=== PATIENT | female | born 1945 | race Caucasian/White ===

== ENCOUNTER 2018-09-20 12:41 | Emergency (ER) | payer OTHER ==
[2018-09-20 14:05] LABS: Absolute Lymphocytes (CBC) 2.9 K/uL (0.7-4.9); Absolute Monocytes 1.1 K/uL (0.1-1.3); Absolute Neutrophil 5.8 K/uL (1.8-8.0); Basophils % 0.2 % (0-1.3); Eosinophils % 4.5 % (0-4.4); Hematocrit 44.4 % (36.0-45.0); Lymphocytes % 28.3 % (15.3-44.8); MCH 31.2 pg (27.0-35.0); MCV 89.6 fL (80-100); MPV 9.4 fL (7.6-11.3); Monocytes % 10.4 % (3.3-12.3); RBC Red Blood Cell Count 4.95 M/uL (3.86-4.86)
[2018-09-20 14:11] LABS: Protime INR 1.05
[2018-09-20 14:12] LABS: ALT/SGPT 33 U/L (12-78); AST/SGOT 29 U/L (15-37); Alkaline Phosphatase 54 U/L (45-117); BUN Blood Urea Nitrogen 23 mg/dL (7-18); Bicarbonate 27 mmol/L (21-32); Bilirubin Direct 0.2 mg/dL (0-0.2); Bilirubin Total 0.5 mg/dL (0.2-1.0); Glucose Level 89 mg/dL (74-106); Magnesium 2.1 mg/dL (1.8-2.4); NT PRO-BNP 83 pg/mL (<125); Potassium 3.9 mmol/L (3.5-5.1); Protein, Total 7.8 g/dL (6.4-8.2); Sodium Level 139 mmol/L (136-145); Troponin (Emerg Dept Use Only) < 0.02 ng/mL (0.0-0.045)
--- NOTE | 2018-09-20 14:16 | RAD REPORT ---
EXAM DESCRIPTION: Balaji Single View09/20/2018 1:55 pm CLINICAL HISTORY: Chest pain COMPARISON: December 2017 FINDINGS: The lungs appear clear of acute infiltrate. The heart is normal size IMPRESSION: No acute abnormalities displayed
--- NOTE | 2018-09-20 14:44 | EKG ---
Test Date: 2018-09-20 Test Time: 13:52:36 Finishing Operator: MAXI MEASUREMENT RESULTS: Intervals: Rate: 90 MI: 152 QRSD: 66 QT: 372 QTc: 455 Stacy: P: 66 MI: 152 QRS: -17 T: 37 INTERPRETIVE STATEMENTS: Normal sinus rhythm Anteroseptal infarct, age undetermined Abnormal ECG Compared to ECG 06/17/2016 09:22:02 Atrial premature complex(es) no longer present Myocardial infarct finding still present Electronically Signed On 09-20-18 14:44:01 DIVISION CONTROLLER by Iban Ann
[2018-09-20] MEDS ORDERED: ASPIRIN 81 MG CHEWABLE TABLET ONE (15:11)
[2018-09-20] MEDS ORDERED: METOPROLOL TAR 25 MG TAB ONE (15:12)
--- NOTE | 2018-09-20 15:19 | RAD REPORT ---
EXAM DESCRIPTION: CT - Head C Spine Mpr Wo Con - 09/20/2018 2:54 pm CLINICAL HISTORY: Head and neck pain radiculopathy COMPARISON: May 2018 MRI C-spine TECHNIQUE: Computed axial tomography of the head and cervical spine was obtained. Sagittal and coronal reconstruction was performed. All CT scans are performed using dose optimization technique as appropriate and may include automated exposure control or mA/KV adjustment according to patient size. FINDINGS: An intracranial bleed is not seen. The ventricles are normal in caliber. An extra-axial fl uid collection is not noted. Couple of punctate calcifications may be secondary to prior inflammation or cavernous angiomas. Fluid within the visualized sinuses and mastoids is not seen A cervical fracture is not visualized. No dislocation is noted. Spondylosis of the cervical spine res ults in multilevel mild to moderate foraminal stenosis. IMPRESSION: No acute intracranial abnormality is seen. A cervical fracture is not visualized. If the patient continues to have symptoms to suggest intracra nial /spinal cord/spinal canal pathology then MRI would be recommended
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
--- NOTE | 2018-09-20 15:50 | EDPHYS ---
Physician Documentation [facility] Name: Joey Almanza Age: 72 yrs Sex: Female : 1945 Arrival Date: 09/20/2018 Time: 12:45 Bed 30 Private MD: Rj Thayer E ED Physician Kristofer Bryant HPI: 09/20 14:49 This 72 yrs old Female presents to ER via Ambulatory with complaints of enid Headache, Dizziness. 14:49 The patient complains of pain to the forehead, left temporal area and right temporal enid area. 14:49 The patient describes the headache as a pressure. Onset: The symptoms/episode enid began/occurred just prior to arrival, this morning, last night. The patient or guardian reports chest pain that is located primarily in the anterior chest wall, bilaterally. Onset: 2 week(s) ago. The patient presents to the emergency department with nausea. Onset: The symptoms/episode began/occurred 2 week(s) ago. Possible causes: unknown. The symptoms are aggravated by nothing. The symptoms are alleviated by nothing. The patient presents with dizziness, generalized weakness. Historical: - Allergies: 12:52 Codeine; aa5 - PMHx: 12:52 COPD; Depression; Emphysema; GERD; High Cholesterol; Hypertension; aa5 - PSHx: 12:52 Cataract Surgery Bilateral; aa5 - Immunization history:: Adult Immunizations unknown. - Ebola Screening: : No symptoms or risks identified at this time. - Family history:: not pertinent. - Social history:: Smoking status: Patient/guardian denies using tobacco. ROS: 14:49 Constitutional: Negative for fever, chills, and weight loss, Eyes: Negative for injury, enid pain, redness, and discharge, ENT: Negative for injury, pain, and discharge, Neck: Negative for injury, pain, and swelling, Respiratory: Negative for shortness of breath, cough, wheezing, and pleuritic chest pain, Back: Negative for injury and pain, : Negative for injury, bleeding, discharge, and swelling, MS/Extremity: Negative for injury and deformity, Skin: Negative for injury, rash, and discoloration, Psych: Negative for depression, anxiety, suicide ideation, homicidal ideation, and hallucinations, Allergy/Immunology: Negative for hives, rash, and allergies, Endocrine: Negative for neck swelling, polydipsia, polyuria, polyphagia, and marked weight changes, Hematologic/Lymphatic: Negative for swollen nodes, abnormal bleeding, and unusual bruising. 14:49 Cardiovascular: Positive for chest pain, of the chest. 14:49 Abdomen/GI: Positive for nausea. 14:49 Neuro: Positive for dizziness. Exam: 14:49 Constitutional: This is a well developed, well nourished patient who is awake, alert, enid and in no acute distress. Head/Face: Normocephalic, atraumatic. Eyes: Pupils equal round and reactive to light, extra-ocular motions intact. Lids and lashes normal. Conjunctiva and sclera are non-icteric and not injected. Cornea within normal limits. Periorbital areas with no swelling, redness, or edema. ENT: Nares patent. No nasal discharge, no septal abnormalities noted. Tympanic membranes are normal and external auditory canals are clear. Oropharynx with no redness, swelling, or masses, exudates, or evidence of obstruction, uvula midline. Mucous membranes moist. Neck: Trachea midline, no thyromegaly or masses palpated, and no cervical lymphadenopathy. Supple, full range of motion without nuchal rigidity, or vertebral point tenderness. No Meningismus. Chest/axilla: Normal chest wall appearance and motion. Nontender with no deformity. No lesions are appreciated. Cardiovascular: Regular rate and rhythm with a normal S1 and S2. No gallops, murmurs, or rubs. Normal PMI, no JVD. No pulse deficits. Respiratory: Lungs have equal breath sounds bilaterally, clear to auscultation and percussion. No rales, rhonchi or wheezes noted. No increased work of breathing, no retractions or nasal flaring. Abdomen/GI: Soft, non-tender, with normal bowel sounds. No distension or tympany. No guarding or rebound. No evidence of tenderness throughout. Back: No spinal tenderness. No costovertebral tenderness. Full range of motion. Skin: Warm, dry with normal turgor. Normal color with no rashes, no lesions, and no evidence of cellulitis. MS/ Extremity: Pulses equal, no cyanosis. Neurovascular intact. Full, normal range of motion. Neuro: Awake and alert, GCS 15, oriented to person, place, time, and situation. Cranial nerves II-XII grossly intact. Motor strength 5/5 in all extremities. Sensory grossly intact. Cerebellar exam normal. Normal gait. Psych: Awake, alert, with orientation to person, place and time. Behavior, mood, and affect are within normal limits. 14:49 Musculoskeletal/extremity: DVT Exam: No signs of deep vein thrombosis. no pain, no swelling, no tenderness, negative Homans' sign noted on exam, no appreciated bluish discoloration, no erythema, no increased warmth. Vital Signs: 12:53 BP 140 / 83; Pulse 97; Resp 18 S; Temp 97.6(TE); Pulse Ox 96% on R/A; Weight 58.97 kg aa5 (R); Height 5 ft. 5 in. (165.10 cm) (R); Pain 4/10; 14:00 BP 135 / 76; Pulse 90; Resp 20; Pulse Ox 95% on R/A; kr2 15:00 BP 137 / 82; Pulse 64; Resp 18; Pulse Ox 97% ; kr2 17:00 BP 133 / 80; Pulse 66; Resp 18; Pulse Ox 100% ; kr2 18:00 BP 128 / 72; Pulse 67; Resp 18; Pulse Ox 97% on R/A; kr2 12:53 Body Mass Index 21.63 (58.97 kg, 165.10 cm) aa5 14:00 Respirations even and unlabored kr2 MDM: 12:56 Patient medically screened. [facility] 14:53 Data reviewed: vital signs, nurses notes, lab test result(s), EKG, radiologic studies, [facility] CT scan, doppler, plain films. 09/20 13:35 Order name: Basic Metabolic Panel; Complete Time: 16:34 kr2 09/20 13:35 Order name: CBC with Diff; Complete Time: 14:34 kr2 09/20 13:35 Order name: LFT's; Complete Time: 16:34 kr2 09/20 13:35 Order name: Magnesium; Complete Time: 16:34 kr2 09/20 13:35 Order name: NT PRO-BNP; Complete Time: 16:34 kr2 09/20 13:35 Order name: PT-INR; Complete Time: 14:34 kr2 09/20 13:35 Order name: XRAY Chest (1 view); Complete Time: 14:34 kr2 09/20 13:35 Order name: Troponin (emerg Dept Use Only); Complete Time: 16:34 [facility] 09/20 13:43 Order name: Urine Dipstick--Ancillary (enter results) 09/20 14:49 Order name: D-Dimer; Complete Time: 15:46 [facility] 09/20 15:48 Order name: Lipase [facility] 09/20 16:12 Order name: Lipase; Complete Time: 16:34 EDMS 09/20 17:00 Order name: Troponin (emerg Dept Use Only): 500pm; Complete Time: 17:54 [facility] 09/20 13:06 Order name: EKG - Nurse/Tech; Complete Time: 13:58 [facility] 09/20 13:35 Order name: EKG; Complete Time: 13:37 [facility] 09/20 13:35 Order name: Cardiac monitoring; Complete Time: 13:36 [facility] 09/20 13:35 Order name: IV Saline Lock; Complete Time: 13:36 [facility] 09/20 13:35 Order name: Labs collected and sent; Complete Time: 13:37 [facility] 09/20 13:35 Order name: O2 Per Protocol; Complete Time: 13:37 [facility] 09/20 13:35 Order name: O2 Sat Monitoring; Complete Time: 13:37 [facility] 09/20 13:36 Order name: Urine Dipstick-Ancillary (obtain specimen); Complete Time: 13:36 [facility] 09/20 14:48 Order name: CT Head C Spine; Complete Time: 15:46 [facility] 09/20 14:48 Order name: Carotid Artery Bilateral US [facility] 09/20 14:52 Order name: Echo w/ Doppler [facility] 09/20 16:36 Order name: CT Aorta for Dissection; Complete Time: 17:54 [facility] 09/20 17:00 Order name: Repeat Cardiac Enzymes at: 5pm; Complete Time: 17:10 [facility] Administered Medications: 14:55 Not Given (Duplicate Order): Lopressor 25 mg PO once [facility] 15:06 Drug: Aspirin 162 mg Route: PO; kr2 15:06 Drug: ToPROL XL 25 mg Route: PO; kr2 Disposition: 09/20/18 15:48 Discharged to Home. Impression: Dizziness and giddiness, Weakness, Chronic obstructive pulmonary disease, unspecified, Chest pain, unspecified, Other abdominal pain - elevated lipase. - Condition is Stable. - Discharge Instructions: Dizziness, Weakness, Fatigue, Weakness, [id number], Aspirin and Your Heart, Dizziness, [id number]. - Prescriptions for Toprol XL 25 mg Oral Tablet - take 1 tablet by ORAL route once daily; 20 tablet. - Medication Reconciliation Form, Thank You Letter, Antibiotic Education, Prescription Opioid Use form. - Follow up: Rj Thayer; When: 2 - 3 days; Reason: Recheck today's complaints, Continuance of care, Re-evaluation by your physician. Follow up: Iban Ann; When: 2 - 3 days; Reason: Recheck today's complaints, Continuance of care, Re-evaluation by your physician. Follow up: Slade Shay MD; When: 2 - 3 days; Reason: Recheck today's complaints, Re-evaluation by your physician. - Problem is new. - Symptoms have improved. Signatures: Dispatcher [employer] EDDC Kristofer Bryant MD MD cha Calderon, Audri, RN RN aa5 Mariana Swenson RN RN kr2 Corrections: (The following items were deleted from the chart) 14:52 14:35 Head Brain Wo Cont+CT.RAD.BRZ ordered. [facility] 15:51 15:48 09/20/2018 15:48 Discharged to Home. Impression: Dizziness and giddiness; enid Weakness. Condition is Stable. Discharge Instructions: Dizziness, Weakness, Fatigue, Weakness, [id number], Aspirin and Your Heart, Dizziness, [id number]. Prescriptions for Toprol XL 25 mg Oral Tablet - take 1 tablet by ORAL route once daily; 20 tablet. and Forms are Medication Reconciliation Form, Thank You Letter, Antibiotic Education, Prescription Opioid Use. Follow up: Rj Thayer; When: 2 - 3 days; Reason: Recheck today's complaints, Continuance of care, Re-evaluation by your physician. Follow up: Iban Ann; When: 2 - 3 days; Reason: Recheck today's complaints, Continuance of care, Re-evaluation by your physician. Problem is new. Symptoms have improved. enid 16:10 15:49 Lipase ordered. [facility] 16:37 15:51 09/20/2018 15:48 Discharged to Home. Impression: Dizziness and giddiness; enid Weakness; Chronic obstructive pulmonary disease, unspecified; Chest pain, unspecified. Condition is Stable. Discharge Instructions: Dizziness, Weakness, Fatigue, Weakness, [id number], Aspirin and Your Heart, Dizziness, [id number]-fm-[id number]. Prescriptions for Toprol XL 25 mg Oral Tablet - take 1 tablet by ORAL route once daily; 20 tablet. and Forms are Medication Reconciliation Form, Thank You Letter, Antibiotic Education, Prescription Opioid Use. Follow up: Rj Thayer; When: 2 - 3 days; Reason: Recheck today's complaints, Continuance of care, Re-evaluation by your physician. Follow up: Iban Ann; When: 2 - 3 days; Reason: Recheck today's complaints, Continuance of care, Re-evaluation by your physician. Problem is new. Symptoms have improved. enid 16:37 16:37 09/20/2018 15:48 Discharged to Home. Impression: Dizziness and giddiness; enid Weakness; Chronic obstructive pulmonary disease, unspecified; Chest pain, unspecified; Other abdominal pain - elevated lipase. Condition is Stable. Discharge Instructions: Dizziness, Weakness, Fatigue, Weakness, [id number], Aspirin and Your Heart, Dizziness, Ieqa-[id number]. Prescriptions for Toprol XL 25 mg Oral Tablet - take 1 tablet by ORAL route once daily; 20 tablet. and Forms are Medication Reconciliation Form, Thank You Letter, Antibiotic Education, Prescription Opioid Use. Follow up: Rj Thayer; When: 2 - 3 days; Reason: Recheck today's complaints, Continuance of care, Re-evaluation by your physician. Follow up: Iban Ann; When: 2 - 3 days; Reason: Recheck today's complaints, Continuance of care, Re-evaluation by your physician. Problem is new. Symptoms have improved. enid 18:07 16:37 09/20/2018 15:48 Discharged to Home. Impression: Dizziness and giddiness; kr2 Weakness; Chronic obstructive pulmonary disease, unspecified; Chest pain, unspecified; Other abdominal pain - elevated lipase. Condition is Stable. Discharge Instructions: Dizziness, Weakness, Fatigue, Weakness, [id number]-[id number], Aspirin and Your Heart, Dizziness, Flkn-sa-Alwa. Prescriptions for Toprol XL 25 mg Oral Tablet - take 1 tablet by ORAL route once daily; 20 tablet. and Forms are Medication Reconciliation Form, Thank You Letter, Antibiotic Education, Prescription Opioid Use. Follow up: Rj Thayer; When: 2 - 3 days; Reason: Recheck today's complaints, Continuance of care, Re-evaluation by your physician. Follow up: Iban Ann; When: 2 - 3 days; Reason: Recheck today's complaints, Continuance of care, Re-evaluation by your physician. Follow up: Slade Shay; When: 2 - 3 days; Reason: Recheck today's complaints, Re-evaluation by your physician. Problem is new. Symptoms have improved. enid
[2018-09-20 16:31] LABS: Lipase 495 U/L (73-393)
--- NOTE | 2018-09-20 17:48 | RAD REPORT ---
EXAM DESCRIPTION: CT - Angio Aorta For Dissection - 09/20/2018 5:31 pm CLINICAL HISTORY: . Chest and abd pain COMPARISON: None TECHNIQUE: Computed tomography angiography of the chest, abdomen pelvis were obtained. 100 cc Isovue 370 was administered intravenously. Coronal and sagittal reconstruction were performed. MIP 3D reconstruction was performed All CT scans are performed using dose optimization technique as appropriate and may include automated exposure control or mA/KV adjustment according to patient size. FINDINGS: An aortic dissection is not seen. An aortic aneurysm is not displayed. Mild arterial calc ifications The celiac, SMA and CLINT are patent . A lung consolidation is not present. A pericardial effusion is not seen. A pleural effusion is not n oted. COPD 1 Fatty liver. Spleen, pancreas adrenals kidneys demonstrate no significant abnormality. The appendix is normal. There no evidence diverticulitis. A 3.1 centimeter right ovarian cyst without significant free fluid IMPRESSION: Negative for an aortic dissection. A 3.1 centimeter right ovarian cyst without significant free fluid
--- NOTE | 2018-09-20 18:28 | RAD REPORT ---
EXAM DESCRIPTION: USCarotid Artery Qpaiitzft27/24/2018 5:49 pm CLINICAL HISTORY: Syncope COMPARISON: None FINDINGS: The velocity of the right internal carotid artery equals 31 cm/sec. The right ICA/CCA rati o 0.7 The velocity of the left internal carotid artery equals 34 cm/sec. The left ICA/CCA ratio 0.5 Mild plaque is present within the carotid arteries. The vertebral arteries demonstrate antegrade flow IMPRESSION: Mild plaque within the carotid arteries without evidence of a hemodynamically significan t stenosis NASCET criteria used. Mild 0-49% stenosis Moderate 50-69% stenosis Severe 70-99% stenosis
[2018-09-20 19:41] LABS: Urine Blood NEGATIVE (NEG); Urine Glucose NEGATIVE (NEG); Urine Protein NEGATIVE (NEG); Urine pH 6.5 (5.0-7.0)
--- NOTE | 2018-09-21 10:10 | ECHO ---
HEIGHT: 5 ft 5 in WEIGHT: 130 lb 0 oz DATE OF STUDY: 09/20/[address]: Kristofer Bryant MD 2-DIMENSIONAL: YES M.MODE: YES DOPPLER: YES COLOR FLOW: YES TDS: PORTABLE: YES DEFINITY: BUBBLE STUDY: DIAGNOSIS: CHEST PAIN, DIZZINESS CARDIAC HISTORY: CATHERIZATION: NO SURGERY: NO PROSTHETIC VALVE: NO PACEMAKER: NO MEASUREMENTS (cm) DIASTOLIC (NORMALS) SYSTOLIC (NORMALS) IVSd 0.9 (0.6-1.2) LA Diam 3.5 (1.9-4.0) LVEF 68% LVIDd 3.4 (3.5-5.7) LVIDs 2.1 (2.0-3.5) %FS 37% LVPWd 1.1 (0.6-1.2) Ao Diam 3.0 (2.0-3.7) 2 DIMENSIONAL ASSESSMENT: RIGHT ATRIUM: NORMAL LEFT ATRIUM: NORMAL RIGHT VENTRICLE: NORMAL LEFT VENTRICLE: NORMAL TRICUSPID VALVE: NORMAL MITRAL VALVE: MITRAL ANNULAR CALCIFICATION PULMONIC VALVE: NORMAL AORTIC VALVE: SCLEROSIS PERICARDIAL EFFUSION: NONE AORTIC ROOT: NORMAL LEFT VENTRICULAR WALL MOTION: NORMAL DOPPLER/COLOR FLOW: NORMAL COMMENTS: TECHNICALLY DIFFICULT STUDY. AORTIC SCLEROSIS. MITRAL ANNULAR CALCIFICATION. GROSSLY NORMAL LEFT VENTRICULAR SIZE AND FUNCTION. TECHNOLOGIST: ELISABETH ANTONIO
== END 2018-09-20 18:07 | disposition home or self-care (01) ==
LOC: ER 12:41
DX: J44.9 Chronic obstructive pulmonary disease, unspecified (principal); R53.1 Weakness; R42 Dizziness and giddiness; R10.9 Unspecified abdominal pain; R79.89 Other specified abnormal findings of blood chemistry; I10 Essential (primary) hypertension; Z88.5 Allergy status to narcotic agent
CPT/HCPCS: 36415; 70450; 71045; 71275; 72125; 74175; 80048; 80076; 81003; 83690; 83735; 83880; 84484 ×2; 85025; 85379; 85610; 93005; 93306; 93880; 99285; Q9967

== ENCOUNTER 2018-10-21 09:52 | Emergency (ER) | payer OTHER ==
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
== END 2018-10-21 11:46 | disposition home or self-care (01) ==
LOC: ER 09:52
DX: S20.219A Contusion of unspecified front wall of thorax, initial encounter (principal); V49.40XA Driver injured in collision with unspecified motor vehicles in traffic accident, initial encounter; J44.9 Chronic obstructive pulmonary disease, unspecified; I10 Essential (primary) hypertension; K21.9 Gastro-esophageal reflux disease without esophagitis; E78.00 Pure hypercholesterolemia, unspecified
CPT/HCPCS: 71046; 99284

== ENCOUNTER 2019-11-11 10:00 | Emergency (ER) | payer OTHER ==
[2019-11-11 10:59] LABS: Absolute Lymphocytes (CBC) 2.4 K/uL (0.7-4.9); Basophils % 1.1 % (0-1.3); Hematocrit 48.6 % (36.0-45.0); Lymphocytes % 14.8 % (15.3-44.8); MPV 9.6 fL (7.6-11.3); RBC Red Blood Cell Count 5.43 M/uL (3.86-4.86)
[2019-11-11 11:00] LABS: Protime INR 1.11
[2019-11-11 11:01] LABS: Urine Blood 3+ (NEG); Urine Glucose NEGATIVE (NEG); Urine Protein 3+ (NEG); Urine Specific Gravity 1.025 (1.005-1.030); Urine pH 5.5 (5.0-7.0)
[2019-11-11 11:03] LABS: Urine RBC TNTC /HPF (NONE SEEN)
[2019-11-11 11:04] LABS: Urine Bacteria >50 /HPF (<20); Urine Culture Reflex Order NOT NEEDED
--- NOTE | 2019-11-11 11:05 | RAD REPORT ---
EXAM DESCRIPTION: CT - Stone Protocol - 11/11/2019 10:50 am CLINICAL HISTORY: Abdominal pain. Flank pain COMPARISON: August 2018 TECHNIQUE: Computed axial tomography of the abdomen pelvis was obtained without oral or IV contrast. Lack of IV and oral contrast limits evaluation of solid organs, bowel, and vessels. Coronal reformat gregory images were obtained and reviewed. All CT scans are performed using dose optimization technique as appropriate and may include automated exposure control or mA/KV adjustment according to patient size. FINDINGS: Multiple, small bilateral renal calculi. Mild right hydronephrosis with mild right periren al stranding. Portions of the right ureter are dilated. A ureteral calculus is not seen. A bladder ca lculus is not present. . Fatty liver Spleen, pancreas and adrenals appear grossly normal There is no evidence of diverticulitis. The appendix appears normal. 36 millimeter right adnexal cystic mass mildly enlarged IMPRESSION: Multiple, small bilateral renal calculi Mild right hydronephrosis. A calculus is not seen within the right ureter/bladder. The patient may dempsey ve had a recently passed calculus. A 36 millimeter right adnexal cystic mass mildly enlarged. Ultrasound is recommended
--- NOTE | 2019-11-11 11:07 | RAD REPORT ---
EXAM DESCRIPTION: Balaji Single View11/11/2019 10:50 am CLINICAL HISTORY: Abdominal pain COMPARISON: 2017 FINDINGS: The lungs appear clear of acute infiltrate. The heart is normal size IMPRESSION: No acute abnormalities displayed
[2019-11-11 11:13] LABS: Albumin 3.8 g/dL (3.4-5.0); Bilirubin Direct 0.2 mg/dL (0-0.2); Bilirubin Total 0.9 mg/dL (0.2-1.0); Magnesium 2.2 mg/dL (1.8-2.4); Protein, Total 8.4 g/dL (6.4-8.2)
[2019-11-11] MEDS ORDERED: NA CHLORIDE 0.9% 1,000 ML ONE (11:29)
[2019-11-11] MEDS ORDERED: CEFTRIAXONE/SWI 1gm 1 GM/10 ML SYR ONE (11:29)
[2019-11-11] MEDS ORDERED: FENTANYL CITR 100 MCG/2 ML ONE (11:33)
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
--- NOTE | 2019-11-11 12:21 | EDPHYS ---
Physician Documentation [facility] Name: Joey Almanza Age: 73 yrs Sex: Female : 1945 Arrival Date: 11/11/2019 Time: 10:03 Bed 19 Private MD: Rj Soler E ED Physician Kristofer Bryant HPI: 11/11 11:01 This 73 yrs old Female presents to ER via Ambulatory with complaints of snw Urinary Problem, Back Pain. 11:01 Onset: The symptoms/episode began/occurred gradually, 1 month(s) ago, and became snw persistent. Associated signs and symptoms: Pertinent positives: dysuria. Modifying factors: The patient symptoms are alleviated by nothing. Dr. Soler evaluating, labs drawn this am. The patient has been recently seen by a physician: the patient's primary care provider, Dr. soler. Historical: - Allergies: 10:11 Codeine; sg - PMHx: 10:11 COPD; Depression; Emphysema; GERD; High Cholesterol; Hypertension; sg - Immunization history:: Adult Immunizations up to date. - Coronavirus screen:: The patient has NOT traveled to [place] in the past 14 days. The patient has NOT had contact with known/suspected case of Coronavirus?. - Social history:: Smoking status: Patient denies any tobacco usage or history of. - Ebola Screening: : Patient negative for fever greater than or equal to 101.5 degrees Fahrenheit, and additional compatible Ebola Virus Disease symptoms Patient denies exposure to infectious person Patient denies travel to an Ebola-affected area in the 21 days before illness onset No symptoms or risks identified at this time. ROS: 10:59 Constitutional: Negative for fever, chills, and weight loss, Eyes: Negative for injury, snw pain, redness, and discharge, ENT: Negative for injury, pain, and discharge, Neck: Negative for injury, pain, and swelling, Cardiovascular: Negative for chest pain, palpitations, and edema, Respiratory: Negative for shortness of breath, cough, wheezing, and pleuritic chest pain, Abdomen/GI: Negative for abdominal pain, nausea, vomiting, diarrhea, and constipation, MS/Extremity: Negative for injury and deformity, Skin: Negative for injury, rash, and discoloration, Neuro: Negative for headache, weakness, numbness, tingling, and seizure. 10:59 Back: Positive for flank pain, bilaterally. 10:59 : Positive for urinary symptoms, urinary frequency. Exam: 10:58 Constitutional: This is a well developed, well nourished patient who is awake, alert, snw and in no acute distress. Head/Face: Normocephalic, atraumatic. Eyes: Pupils equal round and reactive to light, extra-ocular motions intact. Lids and lashes normal. Conjunctiva and sclera are non-icteric and not injected. Cornea within normal limits. Periorbital areas with no swelling, redness, or edema. ENT: Nares patent. No nasal discharge, no septal abnormalities noted. Tympanic membranes are normal and external auditory canals are clear. Oropharynx with no redness, swelling, or masses, exudates, or evidence of obstruction, uvula midline. Mucous membranes moist. Neck: Trachea midline, no thyromegaly or masses palpated, and no cervical lymphadenopathy. Supple, full range of motion without nuchal rigidity, or vertebral point tenderness. No Meningismus. Chest/axilla: Normal chest wall appearance and motion. Nontender with no deformity. No lesions are appreciated. Cardiovascular: Regular rate and rhythm with a normal S1 and S2. No gallops, murmurs, or rubs. Normal PMI, no JVD. No pulse deficits. Respiratory: Lungs have equal breath sounds bilaterally, clear to auscultation and percussion. No rales, rhonchi or wheezes noted. No increased work of breathing, no retractions or nasal flaring. Abdomen/GI: Soft, non-tender, with normal bowel sounds. No distension or tympany. No guarding or rebound. No evidence of tenderness throughout. Skin: Warm, dry with normal turgor. Normal color with no rashes, no lesions, and no evidence of cellulitis. MS/ Extremity: Pulses equal, no cyanosis. Neurovascular intact. Full, normal range of motion. Neuro: Awake and alert, GCS 15, oriented to person, place, time, and situation. Cranial nerves II-XII grossly intact. Motor strength 5/5 in all extremities. Sensory grossly intact. Cerebellar exam normal. Normal gait. Psych: Awake, alert, with orientation to person, place and time. Behavior, mood, and affect are within normal limits. 10:58 Back: pain, that is moderate, of the left mid back and right mid back, CVA tenderness, that is mild, is noted bilaterally, muscle spasm, is not present. Vital Signs: 10:14 BP 172 / 80; Pulse 90; Resp 18; Temp 97.2(TE); Pulse Ox 96% on R/A; Weight 64.86 kg; sg Height 5 ft. 3 in. (160.02 cm); Pain 8/10; 11:38 BP 141 / 80; Pulse 92; Resp 18; Pulse Ox 95% ; sv 12:30 BP 141 / 80; Pulse 92; Resp 18; Temp 97.2; Pulse Ox 95% ; ah 10:14 Body Mass Index 25.33 (64.86 kg, 160.02 cm) sg MDM: 10:09 Patient medically screened. enid 12:33 Differential diagnosis: viral Infection, bacterial infection, pneumonia UTI, kidney snw stone, renal failure, pyelonephritis. Data reviewed: vital signs, nurses notes. Data interpreted: Pulse oximetry: on room air is 95 %. Interpretation: acceptable. Counseling: I had a detailed discussion with the patient and/or guardian regarding: the historical points, exam findings, and any diagnostic results supporting the discharge/admit diagnosis, lab results, radiology results, the need for outpatient follow up, to return to the emergency department if symptoms worsen or persist or if there are any questions or concerns that arise at home. Special discussion: Based on the history and exam findings, there is no indication for further emergent testing or inpatient evaluation. I discussed with the patient/guardian the need to see the primary care provider for further evaluation of the symptoms. I discussed with the patient/guardian the need to see the urologist for further evaluation of the symptoms. 11/11 10:14 Order name: LFT's [facility] 11/11 10:14 Order name: Magnesium [facility] 11/11 10:14 Order name: NT PRO-BNP critical [facility] hospital 11/11 10:14 Order name: Urine Culture [facility] 11/11 10:14 Order name: Urine Microscopic Only critical [facility] 11/11 10:35 Order name: CBC with Diff 11/11 10:35 Order name: PT-INR 11/11 10:42 Order name: Urine Dipstick--Ancillary (enter results) dh4 11/11 11:01 Order name: CBC with Automated Diff; Complete Time: 11:05 EDMS 11/11 11:01 Order name: Urine Dipstick-Ancillary; Complete Time: 11:05 EDMS 11/11 11:02 Order name: Protime (+INR); Complete Time: 11:05 EDMS 11/11 10:14 Order name: XRAY Chest (1 view) sn 11/11 10:14 Order name: EKG; Complete Time: 10:16 snw 11/11 10:14 Order name: Cardiac monitoring; Complete Time: 12:00 w 11/11 10:14 Order name: EKG - Nurse/Tech; Complete Time: 10:59 snw 11/11 10:14 Order name: IV Saline Lock; Complete Time: 10:46 snw 11/11 10:29 Order name: CT Stone Protocol w 11/11 11:06 Order name: Urine Microscopic Only; Complete Time: 11:06 EDMS 11/11 11:09 Order name: CT; Complete Time: 11:18 EDMS 11/11 11:09 Order name: RAD; Complete Time: 11:18 EDMS 11/11 11:14 Order name: Liver (Hepatic) Function; Complete Time: 11:18 EDMS 11/11 11:14 Order name: NT PRO-BNP; Complete Time: 11:18 EDMS 11/11 11:14 Order name: Magnesium; Complete Time: 11:18 EDMS 11/11 10:14 Order name: Labs collected and sent; Complete Time: 10:46 w 11/11 10:14 Order name: O2 Per Protocol; Complete Time: 12:00 w 11/11 10:14 Order name: O2 Sat Monitoring; Complete Time: 12:00 snw 11/11 10:14 Order name: Urine Dipstick-Ancillary (obtain specimen); Complete Time: 10:35 snw Administered Medications: 11:40 Drug: Rocephin 1 grams Route: IV; Rate: calculated rate; Site: right antecubital; 11:40 Drug: NS 0.9% 500 ml Route: IV; Rate: bolus; Site: right antecubital; 11:40 Follow up: Response: No adverse reaction; IV Status: Completed infusion; IV Intake: ah 500ml 11:40 Drug: fentaNYL (PF) 25 mcg Route: IVP; Site: right antecubital; 12:40 Follow up: Response: No adverse reaction; Pain is decreased; RASS: Alert and Calm (0) Disposition: 13:47 Co-signature as Attending Physician, Kristofer Bryant MD I agree with the assessment and [facility] plan of care. Disposition: 11/11/19 12:19 Discharged to Home. Impression: Hydronephrosis with renal and ureteral calculous obstruction - recently passed, Urinary tract infection, site not specified. - Condition is Stable. - Discharge Instructions: Kidney Stones, Urinary Tract Infection, Adult, Hydronephrosis, Dietary Guidelines to Help Prevent Kidney Stones, Rehydration, Elderly, Form - Blood Pressure Record Sheet. - Prescriptions for Flomax 0.4 mg Oral Capsule, Sust. Release 24 hr - take 1 capsule by ORAL route once daily 1/2 hour following the same meal each day; 30 capsule. cefpodoxime 200 mg Oral Tablet - take 1 tablet by ORAL route every 12 hours with food; 20 tablet. promethazine 25 mg Oral Tablet - take 1 tablet by ORAL route every 6 hours As needed; 20 tablet. - Medication Reconciliation Form, Thank You Letter, Antibiotic Education, Prescription Opioid Use form. - Follow up: Rj Soler; When: 2 - 3 days; Reason: Recheck today's complaints, Continuance of care, Re-evaluation by your physician. Follow up: Emergency Department; When: As needed; Reason: Fever > 102 F, Worsening of condition. Signatures: Dispatcher [employer] EDMS Ray Hernadez, RN Kristofer Zabala MD MD cha Therrien, Shelly, ASSOCIATE PROFESSOR OF THEATRE-C ASSOCIATE PROFESSOR OF THEATRE-[place] Jacquelin Barahona RN RN Corrections: (The following items were deleted from the chart) 12:52 12:19 11/11/2019 12:19 Discharged to Home. Impression: Hydronephrosis with renal and ah ureteral calculous obstruction - recently passed; Urinary tract infection, site not specified. Condition is Stable. Discharge Instructions: Kidney Stones, Urinary Tract Infection, Adult, Hydronephrosis, Dietary Guidelines to Help Prevent Kidney Stones, Rehydration, Elderly, Form - Blood Pressure Record Sheet. Prescriptions for Flomax 0.4 mg Oral Capsule, Sust. Release 24 hr - take 1 capsule by ORAL route once daily 1/2 hour following the same meal each day; 30 capsule, cefpodoxime 200 mg Oral Tablet - take 1 tablet by ORAL route every 12 hours with food; 20 tablet, promethazine 25 mg Oral Tablet - take 1 tablet by ORAL route every 6 hours As needed; 20 tablet. and Forms are Medication Reconciliation Form, Thank You Letter, Antibiotic Education, Prescription Opioid Use. Follow up: Rj Soler; When: 2 - 3 days; Reason: Recheck today's complaints, Continuance of care, Re-evaluation by your physician. Follow up: Emergency Department; When: As needed; Reason: Fever > 102 F, Worsening of condition. snw
--- NOTE | 2019-11-11 13:33 | EKG ---
Test Date: 2019-11-11 Test Time: 10:58:20 Retail Brand Ambassador: MAXI MEASUREMENT RESULTS: Intervals: Rate: 78 WY: 158 QRSD: 68 QT: 376 QTc: 428 [place]: P: 63 WY: 158 QRS: -12 T: 28 INTERPRETIVE STATEMENTS: Normal sinus rhythm Normal ECG Compared to ECG 09/20/2018 13:52:36 Myocardial infarct finding no longer present Electronically Signed On 11-11-19 13:32:27 MACHINE ZIPPER TRIMMER by Taras Barahona
[2019-11-11 19:53] VITALS: TEMP 97.2
[2019-11-11 19:55] VITALS: BP 141/80; O2SAT 95
== END 2019-11-11 12:52 | disposition home or self-care (01) ==
LOC: ER 10:00
DX: N13.2 Hydronephrosis with renal and ureteral calculous obstruction (principal); N39.0 Urinary tract infection, site not specified; I10 Essential (primary) hypertension; Z88.5 Allergy status to narcotic agent
CPT/HCPCS: 93005; 87088; 85025; 87086; 80048; 36415 ×2; 83735; 85610; 80076; 87077; 87186; 83880; 76377; 74176; 71045; 96375; 96374; 99284; J3010; J0696; J7030; 81003; 81015